=== PATIENT | female | born 1950 | race Caucasian/White ===

== ENCOUNTER 2020-11-27 07:02 | Outpatient (CLI) | payer MEDICARE, OTHER, SELFPAY ==
[2020-11-27 07:34] LABS: Basophils Absolute Auto 0.06 K/mm3 (0.00-0.10); Basophils Percent Auto 0.8 % (0.0-1.0); Eosinophils Absolute Auto 0.32 K/mm3 (0.02-0.50); Eosinophils Percent Auto 4.5 % (1.0-6.0); Hematocrit 42.9 % (35.0-42.0); Hemoglobin 14.4 g/dL (11.7-13.8); Immature Granulocyte Absolute 0.08 K/mm3 (0.00-0.00); Immature Granulocyte Percent A 1.1 % (0.0-0.0); Lymphocytes Absolute Auto 1.84 K/mm3 (1.10-4.50); Lymphocytes Percent Auto 25.9 % (18.0-42.0); Mean Corpuscular HGB Conc 33.6 g/dL (32.0-36.0); Mean Corpuscular Hemoglobin 31.3 pg (27.0-31.0); Mean Corpuscular Volume 93.3 fL (78.0-102.0); Mean Platelet Volume 10.4 fl (9.2-11.8); Neutrophils Absolute Auto 4.3 K/mm3 (1.7-7.2); Neutrophils Percent Auto 60.7 % (50.0-70.0); Platelet Count Result 185 K/mm3 (150-420); Red Cell Distribution Width 13.2 % (11.6-14.4); White Blood Count 7.1 K/mm3 (4.8-10.8)
[2020-11-27 07:35] LABS: Add Urine Microscopic? YES; Appearance Urine Clear (Clear); Bilirubin Urine Negative (Negative); Blood Urine Negative (Negative); Color Urine Light Yellow (Yellow); Glucose Urine UA Negative (Negative); Ketones Urine Negative (Negative); Leukocyte Esterase Ur 1+ (Negative); Nitrate Urine Negative (Negative); Protein Urine Negative (Negative); Urobilinogen Urine 0.2 mg/dL (0.2-1.0)
[2020-11-27 07:42] LABS: Bacteria Urine Trace /hpf; RBC Urine None seen /hpf (0-2); Squamous Epithelial Cell Urine Few /hpf (Few)
[2020-11-27 08:11] LABS: Creatinine Urine 66.11 mg/dL (40-278); MALB Creatinine Ratio 19.6 mg/g (0-30); Microalbumin Urine Random < 13.0 mg/L
[2020-11-27 08:25] LABS: Alanine Aminotransferase 27 U/L (14-59); Albumin Level 4.7 g/dL (3.4-5.0); Alkaline Phosphatase 101 U/L (46-116); Anion Gap 10 mmol/L (8-16); Aspartate Amino Transferase 16 U/L (15-37); Bilirubin,Total 0.9 mg/dL (0.00-1.00); Blood Urea Nitrogen 39 mg/dL (7-18); Calcium 9.7 mg/dL (8.5-10.1); Carbon Dioxide 28 mmol/L (21-32); Chloride 105 mmol/L (98-108); Cholesterol 241 mg/dL (0-200); Creatine Kinase 59 U/L (26-192); Estimated Glomerular Filt Rate 51; Glucose 109 mg/dL (70-99); HDL Direct 42 mg/dL (40-60); LDL Cholesterol Calculated 156 mg/dL (<130); Osmolality Calculated 306 mOsm/kg (285-295); Potassium 4.6 mmol/L (3.5-5.1); Sodium 143 mmol/L (136-145); Total Protein 7.6 g/dL (6.4-8.2); Triglycerides 213 mg/dL (0-150); Uric Acid 4.3 mg/dL (2.6-6.0)
== END 2020-11-27 07:03 | disposition home or self-care (01) ==
LOC: CHSLAB 07:11
PROVIDERS: PCP Family Medicine; Visit Provider Family Medicine
DX: E78.2 Mixed hyperlipidemia (principal); I10 Essential (primary) hypertension; E11.9 Type 2 diabetes mellitus without complications
CPT/HCPCS: 36415; 80053; 80061; 81001; 82043; 82550; 84550; 85025

== ENCOUNTER 2021-02-17 09:46 | Outpatient (CLI) | payer MEDICARE, OTHER, SELFPAY ==
--- NOTE | ~2021-02-17 | XR_ITS ---
EXAMINATION: XR abdomen obstructive series DATE: 02/17/2021 10:17 INDICATION: Abdominal distention TECHNIQUE: Upright and supine views of the abdomen were obtained. COMPARISON: None. FINDINGS: There is no free intraperitoneal gas or evidence of bowel obstruction. Surgical clips in th e right upper quadrant are likely from prior cholecystectomy. There are a few nonspecific air-fluid l evels. Mild osteoarthritis is noted in the hips. Gas and stool are seen in the colon. IMPRESSION: 1. Nonspecific bowel gas pattern. Reviewed, dictated and finalized at location A.
[2021-02-17 10:06] LABS: Add Urine Microscopic? YES; Appearance Urine Clear (Clear); Basophils Absolute Auto 0.05 K/mm3 (0.00-0.10); Basophils Percent Auto 0.7 % (0.0-1.0); Bilirubin Urine 1+ (Negative); Blood Urine Negative (Negative); Color Urine Yellow (Yellow); Eosinophils Absolute Auto 0.18 K/mm3 (0.02-0.50); Eosinophils Percent Auto 2.3 % (1.0-6.0); Glucose Urine UA Negative (Negative); Hematocrit 40.3 % (35.0-42.0); Hemoglobin 12.9 g/dL (11.7-13.8); Immature Granulocyte Absolute 0.08 K/mm3 (0.00-0.00); Ketones Urine Trace (Negative); Leukocyte Esterase Ur Negative LEU/UL (Negative); Lymphocytes Absolute Auto 1.35 K/mm3 (1.10-4.50); Lymphocytes Percent Auto 17.6 % (18.0-42.0); Mean Corpuscular Hemoglobin 29.7 pg (27.0-31.0); Mean Corpuscular Volume 92.6 fL (78.0-102.0); Mean Platelet Volume 9.4 fl (9.2-11.8); Monocytes Absolute Auto 0.44 K/mm3 (0.10-0.90); Monocytes Percent Auto 5.7 % (2.0-11.0); Neutrophils Absolute Auto 5.6 K/mm3 (1.7-7.2); Neutrophils Percent Auto 72.7 % (50.0-70.0); Nitrate Urine Negative (Negative); Platelet Count Result 294 K/mm3 (150-420); Protein Urine Trace (Negative); Red Blood Count 4.35 M/mm3 (4.20-5.40); Red Cell Distribution Width 13.1 % (11.6-14.4); Urobilinogen Urine 0.2 mg/dL (0.2-1.0); White Blood Count 7.7 K/mm3 (4.8-10.8)
[2021-02-17 10:12] LABS: Bacteria Urine Trace /hpf; RBC Urine None seen /hpf (0-2); Squamous Epithelial Cell Urine Few /hpf (Few); WBC Urine None seen /hpf (0-3)
[2021-02-17 10:13] LABS: Mucus Urine Few /lpf
[2021-02-17 11:35] LABS: Alanine Aminotransferase 29 U/L (14-59); Albumin Level 3.6 g/dL (3.4-5.0); Alkaline Phosphatase 131 U/L (46-116); Amylase 40 U/L (25-115); Anion Gap 12 mmol/L (8-16); Aspartate Amino Transferase 25 U/L (15-37); Bilirubin,Total 0.5 mg/dL (0.00-1.00); Blood Urea Nitrogen 15 mg/dL (7-18); Calcium 9.4 mg/dL (8.5-10.1); Carbon Dioxide 29 mmol/L (21-32); Chloride 102 mmol/L (98-108); Estimated Glomerular Filt Rate 53; Free T4 Free Thyroxine 1.02 ng/dL (0.76-1.46); Glucose 101 mg/dL (70-99); Lipase 189 U/L (73-393); Osmolality Calculated 296 mOsm/kg (285-295); Potassium 5.1 mmol/L (3.5-5.1); Sodium 143 mmol/L (136-145); Total Protein 6.8 g/dL (6.4-8.2)
== END 2021-02-17 09:47 | disposition home or self-care (01) ==
LOC: CHSLAB 09:50
PROVIDERS: PCP Family Medicine; Visit Provider Family Medicine
DX: R10.84 Generalized abdominal pain (principal); R94.6 Abnormal results of thyroid function studies; I10 Essential (primary) hypertension; R14.0 Abdominal distension (gaseous)
CPT/HCPCS: 36415; 74019; 80053; 81001; 82150; 83690; 84439; 84443; 85025

== ENCOUNTER 2021-03-23 16:44 | Outpatient (CLI) | payer MEDICARE, OTHER, SELFPAY ==
--- NOTE | ~2021-03-23 | CT_ITS ---
EXAMINATION: CT abdomen pelvis w con DATE: 03/23/2021 17:51 INDICATION: Abdominal pain. Bloating. TECHNIQUE: Computed tomography (CT) of the abdomen and pelvis was performed with 100 mL Omnipaque 350 intravenous contrast. Automated exposure control and iterative reconstruction technique were employe d. The dose-length product was 1285.54 mGy-cm. COMPARISON: CT abdomen and pelvis 09/24/2006 FINDINGS: The visualized portions of the lung bases demonstrate mild atelectasis. No pleural effusion . The heart size is normal. There are coronary artery calcifications. No pericardial effusion. The li meredith and spleen are normal. There are changes of cholecystectomy. The pancreas and adrenal glands are normal. There is moderate atrophy of right kidney. There are cysts in the kidneys measuring up to 3.5 cm on the right. There is cortical thinning of left kidney. There is a 2.4 cm fibroid in the uterus. There are no dilated loops of bowel. The appendix is not visualized. There is a small sliding hiatal hernia. There are no pathologically enlarged lymph nodes. There is a large volume of ascites. There is nodular peritoneal thickening in the pelvis. There is severe lumbar spondylosis. IMPRESSION: 1. Large volume of ascites. 2. Nodular peritoneal thickening in the pelvis suspicious for carcinomatosis. Reviewed, dictated and finalized at location A. EN MACHINE OPERATOR
[2021-03-23 17:12] LABS: Estimated Glomerular Filt Rate 46
== END 2021-03-23 16:45 | disposition home or self-care (01) ==
LOC: CHSIMG 16:48
PROVIDERS: PCP Family Medicine; Visit Provider Family Medicine
DX: R10.9 Unspecified abdominal pain (principal); R14.0 Abdominal distension (gaseous)
CPT/HCPCS: 74177; Q9967

== ENCOUNTER 2021-03-24 09:46 | Outpatient (CLI) | payer MEDICARE, SELFPAY ==
--- NOTE | ~2021-03-24 | US_ITS ---
EXAMINATION: US pelvic complete w TV DATE: 03/24/2021 10:52 INDICATION: Ascites Comparison:CT dated 03/23/2021 TECHNIQUE: Multiple transabdominal and endovaginal sonographic images of the pelvis performed. FINDINGS: The uterus measures 8.2 x 1.9 x 3.6 cm. The endometrial complex measures 3.5 mm. Endometriu m is heterogeneous with trace fluid. In the right adnexa there is a solid vascular mass measuring 2.9 cm. This may be ovarian. Cannot excl ude adenocarcinoma. There is free fluid in the pelvis. There are no abnormal masses seen on either side. IMPRESSION: 1. Solid 2.9 cm vascular right adnexal mass. Consider ovarian adenocarcinoma. 2: Ascites. Reviewed, dictated and finalized at location B. ET UPHOLSTERER
--- NOTE | ~2021-03-24 | XR_ITS ---
EXAMINATION: XR chest 2V EXAM DATE: 03/24/2021 10:55 INDICATION: Ascites, hypertension, distended abdomen. History breast cancer. TECHNIQUE: Frontal and lateral projections of the chest obtained and reviewed. No recent prior studi es for comparison. FINDINGS: Scattered regions of bibasilar airspace disease, appearance most consistent with subsegment al atelectasis. Infection less likely. There is no pneumothorax suspected. There are no pleural effus ions. Cardiomediastinal silhouette is normal. Moderate-sized lower thoracic bridging endplate osteoph ytes, diffuse idiopathic skeletal hyperostosis. Mild thoracic scoliosis. There are cholecystectomy cl ips. IMPRESSION: Scattered basilar linear opacities most consistent with multifocal atelectasis but please clinically correlate. Reviewed, dictated and finalized at location A. SET UP OPERATOR
[2021-03-24 10:57] LABS: Basophils Absolute Auto 0.06 K/mm3 (0.00-0.10); Basophils Percent Auto 0.6 % (0.0-1.0); Eosinophils Absolute Auto 0.14 K/mm3 (0.02-0.50); Eosinophils Percent Auto 1.5 % (1.0-6.0); Hematocrit 37.2 % (35.0-42.0); Immature Granulocyte Absolute 0.06 K/mm3 (0.00-0.00); Immature Granulocyte Percent A 0.6 % (0.0-0.0); Lymphocytes Absolute Auto 1.43 K/mm3 (1.10-4.50); Lymphocytes Percent Auto 15.2 % (18.0-42.0); Mean Corpuscular HGB Conc 32.3 g/dL (32.0-36.0); Mean Platelet Volume 9.5 fl (9.2-11.8); Monocytes Absolute Auto 0.61 K/mm3 (0.10-0.90); Monocytes Percent Auto 6.5 % (2.0-11.0); Neutrophils Absolute Auto 7.1 K/mm3 (1.7-7.2); Neutrophils Percent Auto 75.6 % (50.0-70.0); Platelet Count Result 308 K/mm3 (150-420); Red Cell Distribution Width 14.4 % (11.6-14.4); White Blood Count 9.4 K/mm3 (4.8-10.8)
[2021-03-24 11:02] LABS: Appearance Urine Clear (Clear); Bilirubin Urine Negative (Negative); Blood Urine 2+ (Negative); Glucose Urine UA Negative (Negative); Ketones Urine Trace (Negative); Leukocyte Esterase Ur Negative (Negative); Nitrate Urine Negative (Negative); Protein Urine Negative (Negative); Urobilinogen Urine 0.2 mg/dL (0.2-1.0)
[2021-03-24 11:09] LABS: Add Urine Microscopic? YES; Bacteria Urine 1+ /hpf; Color Urine Dark Orange (Yellow); Squamous Epithelial Cell Urine Rare /hpf (Few); WBC Urine 0-3 /hpf (0-3)
[2021-03-24 11:50] LABS: Alanine Aminotransferase 20 U/L (14-59); Albumin Level 3.6 g/dL (3.4-5.0); Alkaline Phosphatase 121 U/L (46-116); Amylase 55 U/L (25-115); Anion Gap 12 mmol/L (8-16); Aspartate Amino Transferase 31 U/L (15-37); Bilirubin,Total 0.7 mg/dL (0.00-1.00); Blood Urea Nitrogen 23 mg/dL (7-18); Calcium 9.6 mg/dL (8.5-10.1); Carbon Dioxide 27 mmol/L (21-32); Chloride 101 mmol/L (98-108); Estimated Glomerular Filt Rate 48; Glucose 107 mg/dL (70-99); Lipase 255 U/L (73-393); Osmolality Calculated 293 mOsm/kg (285-295); Potassium 4.2 mmol/L (3.5-5.1); Sodium 140 mmol/L (136-145); Total Protein 6.9 g/dL (6.4-8.2)
== END 2021-03-24 09:47 | disposition home or self-care (01) ==
LOC: CHSLAB 09:56
PROVIDERS: PCP Family Medicine; Visit Provider Family Medicine
DX: R18.8 Other ascites (principal); R31.9 Hematuria, unspecified
CPT/HCPCS: 36415; 71046; 76830; 76856; 80053; 81001; 82150; 83690; 85025; 88112; 88175; G0145

== ENCOUNTER 2021-04-23 07:06 | Outpatient (CLI) | payer MEDICARE, SELFPAY ==
[2021-04-23 07:39] LABS: Partial Thromboplastin Time 30.2 SEC (23.90-30.70); Prothrombin Time 10.7 Seconds (9.50-12.10)
== END 2021-04-23 07:07 | disposition home or self-care (01) ==
LOC: CHSLAB 07:11
PROVIDERS: PCP Family Medicine
DX: N94.89 Other specified conditions associated with female genital organs and menstrual cycle (principal); R18.8 Other ascites
CPT/HCPCS: 36415; 85610; 85730

== ENCOUNTER 2021-05-05 07:12 | Outpatient (CLI) | payer MEDICARE, SELFPAY ==
[2021-05-05 07:46] LABS: Basophils Absolute Auto 0.05 K/mm3 (0.00-0.10); Basophils Percent Auto 0.7 % (0.0-1.0); Eosinophils Absolute Auto 0.27 K/mm3 (0.02-0.50); Eosinophils Percent Auto 3.9 % (1.0-6.0); Hematocrit 36.3 % (35.0-42.0); Immature Granulocyte Absolute 0.07 K/mm3 (0.00-0.00); Lymphocytes Absolute Auto 1.07 K/mm3 (1.10-4.50); Lymphocytes Percent Auto 15.6 % (18.0-42.0); Mean Corpuscular HGB Conc 30.3 g/dL (32.0-36.0); Mean Corpuscular Hemoglobin 28.1 pg (27.0-31.0); Mean Corpuscular Volume 92.6 fL (78.0-102.0); Mean Platelet Volume 9.5 fl (9.2-11.8); Monocytes Absolute Auto 0.49 K/mm3 (0.10-0.90); Monocytes Percent Auto 7.2 % (2.0-11.0); Neutrophils Absolute Auto 4.9 K/mm3 (1.7-7.2); Neutrophils Percent Auto 71.6 % (50.0-70.0); Platelet Count Result 391 K/mm3 (150-420); Red Blood Count 3.92 M/mm3 (4.20-5.40); Red Cell Distribution Width 14.1 % (11.6-14.4); White Blood Count 6.8 K/mm3 (4.8-10.8)
[2021-05-05 09:02] LABS: Alanine Aminotransferase 21 U/L (14-59); Albumin Level 3.1 g/dL (3.4-5.0); Alkaline Phosphatase 181 U/L (46-116); Anion Gap 11 mmol/L (8-16); Aspartate Amino Transferase 14 U/L (15-37); Bilirubin,Total 0.2 mg/dL (0.00-1.00); Blood Urea Nitrogen 23 mg/dL (7-18); Calcium 9.2 mg/dL (8.5-10.1); Carbon Dioxide 28 mmol/L (21-32); Chloride 104 mmol/L (98-108); Estimated Glomerular Filt Rate 59; Glucose 112 mg/dL (70-99); Magnesium 2.3 mg/dL (1.8-2.4); Osmolality Calculated 300 mOsm/kg (285-295); Potassium 4.5 mmol/L (3.5-5.1); Sodium 143 mmol/L (136-145); Total Protein 6.6 g/dL (6.4-8.2)
[2021-05-08 01:42] LABS: CA-125 1023 U/mL (<35)
== END 2021-05-05 07:13 | disposition home or self-care (01) ==
LOC: CHSLAB 07:17
PROVIDERS: PCP Family Medicine
DX: C57.01 Malignant neoplasm of right fallopian tube (principal)
CPT/HCPCS: 36415; 80053; 83735; 85025; 85610; 85730; 86304

== ENCOUNTER 2021-05-06 06:54 | Outpatient (CLI) | payer MEDICARE, SELFPAY ==
[2021-05-06 07:23] LABS: Prothrombin Time 10.8 Seconds (9.50-12.10)
[2021-05-06 07:38] LABS: Partial Thromboplastin Time 29.7 SEC (23.90-30.70)
== END 2021-05-06 06:55 | disposition home or self-care (01) ==
LOC: CHSLAB 06:57
PROVIDERS: PCP Family Medicine
DX: C57.01 Malignant neoplasm of right fallopian tube (principal); N94.89 Other specified conditions associated with female genital organs and menstrual cycle; R18.8 Other ascites
CPT/HCPCS: 36415; 85610; 85730

== ENCOUNTER 2021-06-03 07:00 | Outpatient (CLI) | payer MEDICARE, SELFPAY ==
[2021-06-03 07:21] LABS: Basophils Absolute Auto 0.06 K/mm3 (0.00-0.10); Basophils Percent Auto 0.8 % (0.0-1.0); Eosinophils Absolute Auto 0.46 K/mm3 (0.02-0.50); Eosinophils Percent Auto 6.4 % (1.0-6.0); Hematocrit 40.2 % (35.0-42.0); Hemoglobin 12.6 g/dL (11.7-13.8); Immature Granulocyte Absolute 0.08 K/mm3 (0.00-0.00); Immature Granulocyte Percent A 1.1 % (0.0-0.0); Lymphocytes Absolute Auto 1.72 K/mm3 (1.10-4.50); Lymphocytes Percent Auto 23.8 % (18.0-42.0); Mean Corpuscular HGB Conc 31.3 g/dL (32.0-36.0); Mean Corpuscular Hemoglobin 28.2 pg (27.0-31.0); Mean Corpuscular Volume 89.9 fL (78.0-102.0); Mean Platelet Volume 9.3 fl (9.2-11.8); Monocytes Absolute Auto 0.53 K/mm3 (0.10-0.90); Monocytes Percent Auto 7.3 % (2.0-11.0); Neutrophils Absolute Auto 4.4 K/mm3 (1.7-7.2); Neutrophils Percent Auto 60.6 % (50.0-70.0); Platelet Count Result 302 K/mm3 (150-420); Red Blood Count 4.47 M/mm3 (4.20-5.40); Red Cell Distribution Width 14.8 % (11.6-14.4); White Blood Count 7.2 K/mm3 (4.8-10.8)
[2021-06-03 07:29] LABS: Creatinine Urine 85.35 mg/dL (40-278); Total Protein Urine Random 23.3 mg/dL (0.0-11.9); Ur Ttl Prot Creatinine Ratio 0.27 mg/mg (0-0.20)
[2021-06-03 07:37] LABS: INR 1.1; Partial Thromboplastin Time 30.8 SEC (23.90-30.70); Prothrombin Time 11.4 Seconds (9.50-12.10)
[2021-06-03 08:40] LABS: Alanine Aminotransferase 23 U/L (14-59); Albumin Level 3.5 g/dL (3.4-5.0); Alkaline Phosphatase 165 U/L (46-116); Anion Gap 12 mmol/L (8-16); Aspartate Amino Transferase 15 U/L (15-37); Bilirubin,Total 0.4 mg/dL (0.00-1.00); Blood Urea Nitrogen 24 mg/dL (7-18); Calcium 9.4 mg/dL (8.5-10.1); Carbon Dioxide 28 mmol/L (21-32); Chloride 102 mmol/L (98-108); Estimated Glomerular Filt Rate 53; Glucose 115 mg/dL (70-99); Magnesium 2.1 mg/dL (1.8-2.4); Osmolality Calculated 299 mOsm/kg (285-295); Potassium 4.1 mmol/L (3.5-5.1); Sodium 142 mmol/L (136-145); Total Protein 6.8 g/dL (6.4-8.2)
[2021-06-06 02:04] LABS: CA-125 1605 U/mL (<35)
== END 2021-06-03 07:01 | disposition home or self-care (01) ==
LOC: CHSLAB 07:05
PROVIDERS: PCP Family Medicine
DX: C57.01 Malignant neoplasm of right fallopian tube (principal); Z51.11 Encounter for antineoplastic chemotherapy; R18.8 Other ascites; N94.89 Other specified conditions associated with female genital organs and menstrual cycle
CPT/HCPCS: 36415; 80053; 82570; 83735; 84156; 85025; 85610; 85730; 86304

== ENCOUNTER 2021-06-24 06:58 | Outpatient (CLI) | payer MEDICARE, SELFPAY ==
[2021-06-24 07:15] LABS: Basophils Absolute Auto 0.04 K/mm3 (0.00-0.10); Basophils Percent Auto 0.6 % (0.0-1.0); Eosinophils Absolute Auto 0.04 K/mm3 (0.02-0.50); Eosinophils Percent Auto 0.6 % (1.0-6.0); Hematocrit 40.7 % (35.0-42.0); Hemoglobin 12.8 g/dL (11.7-13.8); Immature Granulocyte Absolute 0.08 K/mm3 (0.00-0.00); Immature Granulocyte Percent A 1.1 % (0.0-0.0); Lymphocytes Absolute Auto 1.38 K/mm3 (1.10-4.50); Lymphocytes Percent Auto 19.5 % (18.0-42.0); Mean Corpuscular HGB Conc 31.4 g/dL (32.0-36.0); Mean Corpuscular Hemoglobin 28.6 pg (27.0-31.0); Mean Corpuscular Volume 91.1 fL (78.0-102.0); Monocytes Absolute Auto 0.48 K/mm3 (0.10-0.90); Monocytes Percent Auto 6.8 % (2.0-11.0); Neutrophils Absolute Auto 5.1 K/mm3 (1.7-7.2); Neutrophils Percent Auto 71.4 % (50.0-70.0); Platelet Count Result 177 K/mm3 (150-420); Red Blood Count 4.47 M/mm3 (4.20-5.40); Red Cell Distribution Width 15.5 % (11.6-14.4); White Blood Count 7.1 K/mm3 (4.8-10.8)
[2021-06-24 07:21] LABS: Creatinine Urine 82.75 mg/dL (40-278); Total Protein Urine Random 18.6 mg/dL (0.0-11.9); Ur Ttl Prot Creatinine Ratio 0.22 mg/mg (0-0.20)
[2021-06-24 07:54] LABS: Alanine Aminotransferase 26 U/L (14-59); Albumin Level 3.4 g/dL (3.4-5.0); Alkaline Phosphatase 126 U/L (46-116); Anion Gap 6 mmol/L (8-16); Aspartate Amino Transferase 19 U/L (15-37); Bilirubin,Total 0.2 mg/dL (0.00-1.00); Blood Urea Nitrogen 15 mg/dL (7-18); Calcium 9.1 mg/dL (8.5-10.1); Carbon Dioxide 30 mmol/L (21-32); Chloride 107 mmol/L (98-108); Estimated Glomerular Filt Rate > 60; Glucose 104 mg/dL (70-99); Magnesium 2.5 mg/dL (1.8-2.4); Osmolality Calculated 296 mOsm/kg (285-295); Potassium 4.6 mmol/L (3.5-5.1); Sodium 143 mmol/L (136-145); Total Protein 6.5 g/dL (6.4-8.2)
[2021-06-27 02:27] LABS: CA-125 919 U/mL (<35)
== END 2021-06-24 06:59 | disposition home or self-care (01) ==
LOC: CHSLAB 07:01
PROVIDERS: PCP Family Medicine
DX: C57.01 Malignant neoplasm of right fallopian tube (principal); Z51.11 Encounter for antineoplastic chemotherapy
CPT/HCPCS: 36415; 80053; 82570; 83735; 84156; 85025; 86304

== ENCOUNTER 2021-07-15 06:58 | Outpatient (CLI) | payer MEDICARE, SELFPAY ==
[2021-07-15 07:14] LABS: Basophils Absolute Auto 0.06 K/mm3 (0.00-0.10); Basophils Percent Auto 0.8 % (0.0-1.0); Hematocrit 39.2 % (35.0-42.0); Hemoglobin 12.5 g/dL (11.7-13.8); Immature Granulocyte Absolute 0.06 K/mm3 (0.00-0.00); Immature Granulocyte Percent A 0.8 % (0.0-0.0); Lymphocytes Absolute Auto 1.39 K/mm3 (1.10-4.50); Lymphocytes Percent Auto 18.7 % (18.0-42.0); Mean Corpuscular HGB Conc 31.9 g/dL (32.0-36.0); Mean Corpuscular Hemoglobin 29.2 pg (27.0-31.0); Mean Corpuscular Volume 91.6 fL (78.0-102.0); Mean Platelet Volume 9.1 fl (9.2-11.8); Monocytes Absolute Auto 0.44 K/mm3 (0.10-0.90); Monocytes Percent Auto 5.9 % (2.0-11.0); Neutrophils Absolute Auto 5.5 K/mm3 (1.7-7.2); Neutrophils Percent Auto 73.8 % (50.0-70.0); Platelet Count Result 147 K/mm3 (150-420); Red Blood Count 4.28 M/mm3 (4.20-5.40); White Blood Count 7.4 K/mm3 (4.8-10.8)
[2021-07-15 07:26] LABS: Creatinine Urine 100.92 mg/dL (40-278); Total Protein Urine Random 21.9 mg/dL (0.0-11.9); Ur Ttl Prot Creatinine Ratio 0.22 mg/mg (0-0.20)
[2021-07-15 07:56] LABS: Alanine Aminotransferase 23 U/L (14-59); Albumin Level 3.7 g/dL (3.4-5.0); Alkaline Phosphatase 111 U/L (46-116); Anion Gap 10 mmol/L (8-16); Aspartate Amino Transferase 20 U/L (15-37); Bilirubin,Total 0.4 mg/dL (0.00-1.00); Blood Urea Nitrogen 19 mg/dL (7-18); Calcium 9.4 mg/dL (8.5-10.1); Carbon Dioxide 26 mmol/L (21-32); Chloride 104 mmol/L (98-108); Estimated Glomerular Filt Rate > 60; Glucose 105 mg/dL (70-99); Magnesium 1.4 mg/dL (1.8-2.4); Osmolality Calculated 292 mOsm/kg (285-295); Sodium 140 mmol/L (136-145); Total Protein 6.7 g/dL (6.4-8.2)
[2021-07-18 03:16] LABS: CA-125 439 U/mL (<35)
== END 2021-07-15 06:59 | disposition home or self-care (01) ==
LOC: CHSLAB 07:01
PROVIDERS: PCP Family Medicine
DX: C57.01 Malignant neoplasm of right fallopian tube (principal); Z51.11 Encounter for antineoplastic chemotherapy
CPT/HCPCS: 36415; 80053; 82570; 83735; 84156; 85025; 86304

== ENCOUNTER 2021-08-05 07:08 | Outpatient (CLI) | payer MEDICARE, SELFPAY ==
[2021-08-05 07:27] LABS: Basophils Absolute Auto 0.03 K/mm3 (0.00-0.10); Basophils Percent Auto 0.5 % (0.0-1.0); Hematocrit 36.8 % (35.0-42.0); Hemoglobin 12.1 g/dL (11.7-13.8); Immature Granulocyte Absolute 0.04 K/mm3 (0.00-0.00); Immature Granulocyte Percent A 0.6 % (0.0-0.0); Immature Platelet Fraction Pct 1.6 % (1.0-7.0); Lymphocytes Absolute Auto 1.58 K/mm3 (1.10-4.50); Lymphocytes Percent Auto 25.6 % (18.0-42.0); Mean Corpuscular HGB Conc 32.9 g/dL (32.0-36.0); Mean Corpuscular Hemoglobin 30.8 pg (27.0-31.0); Mean Corpuscular Volume 93.6 fL (78.0-102.0); Mean Platelet Volume 9.5 fl (9.2-11.8); Monocytes Absolute Auto 0.36 K/mm3 (0.10-0.90); Monocytes Percent Auto 5.8 % (2.0-11.0); Neutrophils Absolute Auto 4.2 K/mm3 (1.7-7.2); Neutrophils Percent Auto 67.5 % (50.0-70.0); Platelet Count Result 141 K/mm3 (150-420); Red Blood Count 3.93 M/mm3 (4.20-5.40); Red Cell Distribution Width 21.2 % (11.6-14.4); White Blood Count 6.2 K/mm3 (4.8-10.8)
[2021-08-05 07:41] LABS: Creatinine Urine 92.75 mg/dL (40-278); Total Protein Urine Random 13.8 mg/dL (0.0-11.9); Ur Ttl Prot Creatinine Ratio 0.15 mg/mg (0-0.20)
[2021-08-05 08:42] LABS: Alanine Aminotransferase 22 U/L (14-59); Albumin Level 3.7 g/dL (3.4-5.0); Alkaline Phosphatase 96 U/L (46-116); Anion Gap 10 mmol/L (8-16); Aspartate Amino Transferase 19 U/L (15-37); Bilirubin,Total 0.3 mg/dL (0.00-1.00); Blood Urea Nitrogen 16 mg/dL (7-18); Calcium 9.1 mg/dL (8.5-10.1); Carbon Dioxide 26 mmol/L (21-32); Chloride 106 mmol/L (98-108); Estimated Glomerular Filt Rate > 60; Glucose 99 mg/dL (70-99); Magnesium 1.6 mg/dL (1.8-2.4); Osmolality Calculated 295 mOsm/kg (285-295); Potassium 3.9 mmol/L (3.5-5.1); Sodium 142 mmol/L (136-145); Total Protein 6.5 g/dL (6.4-8.2)
[2021-08-08 02:40] LABS: CA-125 322 U/mL (<35)
== END 2021-08-05 07:09 | disposition home or self-care (01) ==
LOC: CHSLAB 07:12
PROVIDERS: PCP Family Medicine
DX: C57.01 Malignant neoplasm of right fallopian tube (principal)
CPT/HCPCS: 36415; 80053; 82570; 83735; 84156; 85025; 85055; 86304

== ENCOUNTER 2021-08-26 07:22 | Outpatient (CLI) | payer MEDICARE, SELFPAY ==
[2021-08-26 07:56] LABS: Basophils Absolute Auto 0.03 K/mm3 (0.00-0.10); Basophils Percent Auto 0.4 % (0.0-1.0); Hematocrit 33.2 % (35.0-42.0); Hemoglobin 10.9 g/dL (11.7-13.8); Immature Granulocyte Absolute 0.04 K/mm3 (0.00-0.00); Immature Granulocyte Percent A 0.5 % (0.0-0.0); Lymphocytes Absolute Auto 1.64 K/mm3 (1.10-4.50); Lymphocytes Percent Auto 22.3 % (18.0-42.0); Mean Corpuscular HGB Conc 32.8 g/dL (32.0-36.0); Mean Corpuscular Hemoglobin 32.5 pg (27.0-31.0); Mean Corpuscular Volume 99.1 fL (78.0-102.0); Mean Platelet Volume 9.6 fl (9.2-11.8); Monocytes Absolute Auto 0.43 K/mm3 (0.10-0.90); Monocytes Percent Auto 5.8 % (2.0-11.0); Neutrophils Absolute Auto 5.2 K/mm3 (1.7-7.2); Platelet Count Result 108 K/mm3 (150-420); Red Blood Count 3.35 M/mm3 (4.20-5.40); Red Cell Distribution Width 23.2 % (11.6-14.4); White Blood Count 7.4 K/mm3 (4.8-10.8)
[2021-08-26 08:02] LABS: Creatinine Urine 83.13 mg/dL (40-278); Total Protein Urine Random 15.1 mg/dL (0.0-11.9); Ur Ttl Prot Creatinine Ratio 0.18 mg/mg (0-0.20)
[2021-08-26 08:06] LABS: Alanine Aminotransferase 23 U/L (14-59); Albumin Level 3.4 g/dL (3.4-5.0); Alkaline Phosphatase 90 U/L (46-116); Anion Gap 7 mmol/L (8-16); Aspartate Amino Transferase 21 U/L (15-37); Bilirubin,Total 0.3 mg/dL (0.00-1.00); Blood Urea Nitrogen 22 mg/dL (7-18); Calcium 9.4 mg/dL (8.5-10.1); Carbon Dioxide 27 mmol/L (21-32); Chloride 107 mmol/L (98-108); Estimated Glomerular Filt Rate > 60; Glucose 100 mg/dL (70-99); Magnesium 1.6 mg/dL (1.8-2.4); Osmolality Calculated 295 mOsm/kg (285-295); Potassium 4.1 mmol/L (3.5-5.1); Sodium 141 mmol/L (136-145); Total Protein 6.8 g/dL (6.4-8.2)
[2021-08-29 00:38] LABS: CA-125 172 U/mL (<35)
== END 2021-08-26 07:23 | disposition home or self-care (01) ==
LOC: CHSLAB 07:25
PROVIDERS: PCP Family Medicine
DX: C57.01 Malignant neoplasm of right fallopian tube (principal)
CPT/HCPCS: 36415; 80053; 82570; 83735; 84156; 85025; 86304

== ENCOUNTER 2021-09-16 07:01 | Outpatient (CLI) | payer MEDICARE, SELFPAY ==
[2021-09-16 07:22] LABS: Basophils Absolute Auto 0.03 K/mm3 (0.00-0.10); Basophils Percent Auto 0.4 % (0.0-1.0); Hemoglobin 10.4 g/dL (11.7-13.8); Immature Granulocyte Absolute 0.04 K/mm3 (0.00-0.00); Immature Granulocyte Percent A 0.6 % (0.0-0.0); Lymphocytes Absolute Auto 1.57 K/mm3 (1.10-4.50); Lymphocytes Percent Auto 23.3 % (18.0-42.0); Mean Corpuscular HGB Conc 33.5 g/dL (32.0-36.0); Mean Corpuscular Hemoglobin 34.4 pg (27.0-31.0); Mean Corpuscular Volume 102.6 fL (78.0-102.0); Mean Platelet Volume 9.9 fl (9.2-11.8); Monocytes Absolute Auto 0.45 K/mm3 (0.10-0.90); Monocytes Percent Auto 6.7 % (2.0-11.0); Neutrophils Absolute Auto 4.7 K/mm3 (1.7-7.2); Platelet Count Result 94 K/mm3 (150-420); Red Blood Count 3.02 M/mm3 (4.20-5.40); Red Cell Distribution Width 20.6 % (11.6-14.4); White Blood Count 6.8 K/mm3 (4.8-10.8)
[2021-09-16 07:31] LABS: Creatinine Urine 113.77 mg/dL (40-278); Total Protein Urine Random 27.6 mg/dL (0.0-11.9); Ur Ttl Prot Creatinine Ratio 0.24 mg/mg (0-0.20)
[2021-09-16 08:11] LABS: Alanine Aminotransferase 10 U/L (14-59); Albumin Level 3.5 g/dL (3.4-5.0); Alkaline Phosphatase 94 U/L (46-116); Anion Gap 11 mmol/L (8-16); Aspartate Amino Transferase 31 U/L (15-37); Bilirubin,Total 0.5 mg/dL (0.00-1.00); Blood Urea Nitrogen 15 mg/dL (7-18); Calcium 8.7 mg/dL (8.5-10.1); Carbon Dioxide 24 mmol/L (21-32); Chloride 108 mmol/L (98-108); Estimated Glomerular Filt Rate > 60; Glucose 98 mg/dL (70-99); Magnesium 1.5 mg/dL (1.8-2.4); Osmolality Calculated 296 mOsm/kg (285-295); Potassium 3.6 mmol/L (3.5-5.1); Sodium 143 mmol/L (136-145); Total Protein 6.1 g/dL (6.4-8.2)
[2021-09-19 02:28] LABS: CA-125 140 U/mL (<35)
== END 2021-09-16 07:02 | disposition home or self-care (01) ==
LOC: CHSLAB 07:05
PROVIDERS: PCP Family Medicine
DX: C57.01 Malignant neoplasm of right fallopian tube (principal)
CPT/HCPCS: 36415; 80053; 82570; 83735; 84156; 85025; 85055; 86304

== ENCOUNTER 2021-09-22 07:12 | Outpatient (CLI) | payer MEDICARE, OTHER, SELFPAY ==
[2021-09-22 07:26] LABS: Basophils Absolute Auto 0.03 K/mm3 (0.00-0.10); Basophils Percent Auto 0.5 % (0.0-1.0); Eosinophils Absolute Auto 0.07 K/mm3 (0.02-0.50); Eosinophils Percent Auto 1.2 % (1.0-6.0); Hematocrit 32.3 % (35.0-42.0); Hemoglobin 10.7 g/dL (11.7-13.8); Immature Granulocyte Absolute 0.04 K/mm3 (0.00-0.00); Immature Granulocyte Percent A 0.7 % (0.0-0.0); Lymphocytes Absolute Auto 1.65 K/mm3 (1.10-4.50); Lymphocytes Percent Auto 27.8 % (18.0-42.0); Mean Corpuscular HGB Conc 33.1 g/dL (32.0-36.0); Mean Corpuscular Hemoglobin 35.4 pg (27.0-31.0); Mean Platelet Volume 9.8 fl (9.2-11.8); Monocytes Absolute Auto 0.47 K/mm3 (0.10-0.90); Monocytes Percent Auto 7.9 % (2.0-11.0); Neutrophils Absolute Auto 3.7 K/mm3 (1.7-7.2); Neutrophils Percent Auto 61.9 % (50.0-70.0); Platelet Count Result 106 K/mm3 (150-420); Red Blood Count 3.02 M/mm3 (4.20-5.40); Red Cell Distribution Width 20.3 % (11.6-14.4); White Blood Count 5.9 K/mm3 (4.8-10.8)
[2021-09-22 08:48] LABS: Alanine Aminotransferase 20 U/L (14-59); Albumin Level 3.5 g/dL (3.4-5.0); Alkaline Phosphatase 90 U/L (46-116); Anion Gap 6 mmol/L (8-16); Aspartate Amino Transferase 20 U/L (15-37); Bilirubin,Total 0.3 mg/dL (0.00-1.00); Blood Urea Nitrogen 19 mg/dL (7-18); Calcium 8.8 mg/dL (8.5-10.1); Carbon Dioxide 28 mmol/L (21-32); Chloride 107 mmol/L (98-108); Estimated Glomerular Filt Rate > 60; Glucose 102 mg/dL (70-99); Magnesium 1.5 mg/dL (1.8-2.4); Osmolality Calculated 294 mOsm/kg (285-295); Potassium 4.2 mmol/L (3.5-5.1); Sodium 141 mmol/L (136-145); Total Protein 6.2 g/dL (6.4-8.2)
== END 2021-09-22 07:13 | disposition home or self-care (01) ==
LOC: CHSLAB 07:16
PROVIDERS: PCP Family Medicine
DX: C57.01 Malignant neoplasm of right fallopian tube (principal)
CPT/HCPCS: 36415; 80053; 83735; 85025

== ENCOUNTER 2021-11-25 15:49 | Outpatient (CLI) | payer MEDICARE, OTHER, SELFPAY ==
[2021-11-25 16:11] LABS: Add Urine Microscopic? YES; Bilirubin Urine Negative (Negative); Blood Urine 2+ (Negative); Color Urine Yellow (Yellow); Glucose Urine UA Negative (Negative); Ketones Urine Negative (Negative); Leukocyte Esterase Ur 3+ LEU/UL (Negative); Nitrate Urine Positive (Negative); Protein Urine Trace (Negative); Urobilinogen Urine 0.2 mg/dL (0.2-1.0)
[2021-11-25 16:17] LABS: Appearance Urine Cloudy (Clear); Squamous Epithelial Cell Urine Few /hpf (Few); WBC Urine >75 /hpf (0-3)
[2021-11-25 16:18] LABS: Bacteria Urine 1+ /hpf
== END 2021-11-25 15:50 | disposition home or self-care (01) ==
LOC: CHSLAB 15:55
PROVIDERS: PCP Family Medicine
DX: R39.15 Urgency of urination (principal)
CPT/HCPCS: 81001; 87077; 87086; 87088; 87186

== ENCOUNTER 2021-12-30 06:58 | Outpatient (CLI) | payer MEDICARE, SELFPAY ==
[2021-12-30 07:10] LABS: Basophils Absolute Auto 0.02 K/mm3 (0.00-0.10); Basophils Percent Auto 0.3 % (0.0-1.0); Eosinophils Percent Auto 4.8 % (1.0-6.0); Hematocrit 34.6 % (35.0-42.0); Immature Granulocyte Absolute 0.03 K/mm3 (0.00-0.00); Immature Granulocyte Percent A 0.5 % (0.0-0.0); Lymphocytes Absolute Auto 1.08 K/mm3 (1.10-4.50); Lymphocytes Percent Auto 17.4 % (18.0-42.0); Mean Corpuscular HGB Conc 31.8 g/dL (32.0-36.0); Mean Corpuscular Hemoglobin 30.3 pg (27.0-31.0); Mean Corpuscular Volume 95.3 fL (78.0-102.0); Monocytes Absolute Auto 0.45 K/mm3 (0.10-0.90); Monocytes Percent Auto 7.2 % (2.0-11.0); Neutrophils Absolute Auto 4.3 K/mm3 (1.7-7.2); Neutrophils Percent Auto 69.8 % (50.0-70.0); Platelet Count Result 249 K/mm3 (150-420); Red Blood Count 3.63 M/mm3 (4.20-5.40); Red Cell Distribution Width 14.8 % (11.6-14.4); White Blood Count 6.2 K/mm3 (4.8-10.8)
[2021-12-30 08:04] LABS: Alanine Aminotransferase 15 U/L (14-59); Albumin Level 3.2 g/dL (3.4-5.0); Alkaline Phosphatase 117 U/L (46-116); Anion Gap 7 mmol/L (8-16); Aspartate Amino Transferase 17 U/L (15-37); Bilirubin,Total 0.3 mg/dL (0.00-1.00); Blood Urea Nitrogen 25 mg/dL (7-18); Calcium 9.6 mg/dL (8.5-10.1); Carbon Dioxide 28 mmol/L (21-32); Chloride 104 mmol/L (98-108); Estimated Glomerular Filt Rate > 60; Glucose 107 mg/dL (70-99); Magnesium 1.8 mg/dL (1.8-2.4); Osmolality Calculated 292 mOsm/kg (285-295); Potassium 4.1 mmol/L (3.5-5.1); Sodium 139 mmol/L (136-145); Total Protein 7.4 g/dL (6.4-8.2)
[2022-01-02 01:00] LABS: CA-125 1450 U/mL (<35)
== END 2021-12-30 06:59 | disposition home or self-care (01) ==
LOC: CHSLAB 07:00
PROVIDERS: PCP Family Medicine; Visit Provider Obstetrics & Gynecology
DX: C57.01 Malignant neoplasm of right fallopian tube (principal)
CPT/HCPCS: 36415; 80053; 83735; 85025; 86304

== ENCOUNTER 2022-01-20 07:02 | Outpatient (CLI) | payer MEDICARE, SELFPAY ==
[2022-01-20 07:21] LABS: Basophils Absolute Auto 0.02 K/mm3 (0.00-0.10); Basophils Percent Auto 0.3 % (0.0-1.0); Eosinophils Absolute Auto 0.04 K/mm3 (0.02-0.50); Eosinophils Percent Auto 0.5 % (1.0-6.0); Hematocrit 32.8 % (35.0-42.0); Hemoglobin 10.4 g/dL (11.7-13.8); Immature Granulocyte Absolute 0.07 K/mm3 (0.00-0.00); Immature Granulocyte Percent A 0.9 % (0.0-0.0); Lymphocytes Percent Auto 10.8 % (18.0-42.0); Mean Corpuscular HGB Conc 31.7 g/dL (32.0-36.0); Mean Corpuscular Hemoglobin 29.5 pg (27.0-31.0); Mean Corpuscular Volume 93.2 fL (78.0-102.0); Mean Platelet Volume 9.5 fl (9.2-11.8); Monocytes Absolute Auto 0.36 K/mm3 (0.10-0.90); Monocytes Percent Auto 4.9 % (2.0-11.0); Neutrophils Absolute Auto 6.1 K/mm3 (1.7-7.2); Neutrophils Percent Auto 82.6 % (50.0-70.0); Platelet Count Result 177 K/mm3 (150-420); Red Blood Count 3.52 M/mm3 (4.20-5.40); Red Cell Distribution Width 16.2 % (11.6-14.4); White Blood Count 7.4 K/mm3 (4.8-10.8)
[2022-01-20 07:29] LABS: Ur Ttl Prot Creatinine Ratio 0.36 mg/mg (0-0.20)
[2022-01-20 07:37] LABS: Alanine Aminotransferase 15 U/L (14-59); Alkaline Phosphatase 132 U/L (46-116); Anion Gap 7 mmol/L (8-16); Aspartate Amino Transferase 15 U/L (15-37); Bilirubin,Total 0.3 mg/dL (0.00-1.00); Blood Urea Nitrogen 15 mg/dL (7-18); Calcium 9.5 mg/dL (8.5-10.1); Carbon Dioxide 30 mmol/L (21-32); Chloride 107 mmol/L (98-108); Estimated Glomerular Filt Rate > 60; Glucose 105 mg/dL (70-99); Magnesium 1.7 mg/dL (1.8-2.4); Osmolality Calculated 298 mOsm/kg (285-295); Potassium 3.7 mmol/L (3.5-5.1); Sodium 144 mmol/L (136-145); Total Protein 7.1 g/dL (6.4-8.2)
[2022-01-23 02:52] LABS: CA-125 1872 U/mL (<35)
== END 2022-01-20 07:03 | disposition home or self-care (01) ==
LOC: CHSLAB 07:06
PROVIDERS: PCP Family Medicine; Visit Provider Obstetrics & Gynecology
DX: C57.01 Malignant neoplasm of right fallopian tube (principal)
CPT/HCPCS: 36415; 80053; 82570; 83735; 84156; 85025; 86304

== ENCOUNTER 2022-03-03 07:07 | Outpatient (CLI) | payer MEDICARE, SELFPAY ==
[2022-03-03 07:27] LABS: Basophils Absolute Auto 0.04 K/mm3 (0.00-0.10); Basophils Percent Auto 0.6 % (0.0-1.0); Eosinophils Absolute Auto 0.19 K/mm3 (0.02-0.50); Eosinophils Percent Auto 2.9 % (1.0-6.0); Hematocrit 31.6 % (35.0-42.0); Hemoglobin 9.6 g/dL (11.7-13.8); Immature Granulocyte Percent A 1.5 % (0.0-0.0); Lymphocytes Absolute Auto 1.07 K/mm3 (1.10-4.50); Lymphocytes Percent Auto 16.2 % (18.0-42.0); Mean Corpuscular HGB Conc 30.4 g/dL (32.0-36.0); Mean Corpuscular Hemoglobin 28.3 pg (27.0-31.0); Mean Corpuscular Volume 93.2 fL (78.0-102.0); Mean Platelet Volume 9.9 fl (9.2-11.8); Monocytes Absolute Auto 0.37 K/mm3 (0.10-0.90); Monocytes Percent Auto 5.6 % (2.0-11.0); Neutrophils Absolute Auto 4.9 K/mm3 (1.7-7.2); Neutrophils Percent Auto 73.2 % (50.0-70.0); Platelet Count Result 247 K/mm3 (150-420); Red Blood Count 3.39 M/mm3 (4.20-5.40); Red Cell Distribution Width 19.9 % (11.6-14.4); White Blood Count 6.6 K/mm3 (4.8-10.8)
[2022-03-03 07:32] LABS: Creatinine Urine 123.05 mg/dL (40-278); Ur Ttl Prot Creatinine Ratio 0.28 mg/mg (0-0.20)
[2022-03-03 08:03] LABS: Alanine Aminotransferase 22 U/L (14-59); Albumin Level 2.5 g/dL (3.4-5.0); Alkaline Phosphatase 191 U/L (46-116); Anion Gap 12 mmol/L (8-16); Aspartate Amino Transferase 19 U/L (15-37); Bilirubin,Total 0.5 mg/dL (0.00-1.00); Blood Urea Nitrogen 26 mg/dL (7-18); Calcium 9.4 mg/dL (8.5-10.1); Carbon Dioxide 25 mmol/L (21-32); Chloride 103 mmol/L (98-108); Estimated Glomerular Filt Rate 41; Glucose 115 mg/dL (70-99); Magnesium 1.2 mg/dL (1.8-2.4); Osmolality Calculated 295 mOsm/kg (285-295); Potassium 3.9 mmol/L (3.5-5.1); Sodium 140 mmol/L (136-145); Total Protein 6.8 g/dL (6.4-8.2)
[2022-03-06 00:50] LABS: CA-125 6022 U/mL (<35)
== END 2022-03-03 07:08 | disposition home or self-care (01) ==
LOC: CHSLAB 07:10
PROVIDERS: PCP Family Medicine
DX: C57.01 Malignant neoplasm of right fallopian tube (principal); Z51.11 Encounter for antineoplastic chemotherapy
CPT/HCPCS: 36415; 80053; 82570; 83735; 84156; 85025; 86304

== ENCOUNTER 2022-03-24 07:26 | Outpatient (CLI) | payer MEDICARE, SELFPAY ==
[2022-03-24 07:47] LABS: Basophils Absolute Auto 0.04 K/mm3 (0.00-0.10); Basophils Percent Auto 0.5 % (0.0-1.0); Eosinophils Absolute Auto 0.09 K/mm3 (0.02-0.50); Eosinophils Percent Auto 1.1 % (1.0-6.0); Hemoglobin 9.1 g/dL (11.7-13.8); Immature Granulocyte Absolute 0.05 K/mm3 (0.00-0.00); Immature Granulocyte Percent A 0.6 % (0.0-0.0); Lymphocytes Absolute Auto 1.15 K/mm3 (1.10-4.50); Lymphocytes Percent Auto 13.9 % (18.0-42.0); Mean Corpuscular HGB Conc 31.4 g/dL (32.0-36.0); Mean Corpuscular Hemoglobin 29.9 pg (27.0-31.0); Mean Corpuscular Volume 95.4 fL (78.0-102.0); Mean Platelet Volume 10.3 fl (9.2-11.8); Monocytes Percent Auto 6.1 % (2.0-11.0); Neutrophils Absolute Auto 6.4 K/mm3 (1.7-7.2); Neutrophils Percent Auto 77.8 % (50.0-70.0); Platelet Count Result 170 K/mm3 (150-420); Red Blood Count 3.04 M/mm3 (4.20-5.40); Red Cell Distribution Width 22.4 % (11.6-14.4); White Blood Count 8.3 K/mm3 (4.8-10.8)
[2022-03-24 08:12] LABS: Creatinine Urine 131.97 mg/dL (40-278); Total Protein Urine Random 49.8 mg/dL (0.0-11.9); Ur Ttl Prot Creatinine Ratio 0.38 mg/mg (0-0.20)
[2022-03-24 08:29] LABS: Alanine Aminotransferase 20 U/L (14-59); Albumin Level 2.6 g/dL (3.4-5.0); Alkaline Phosphatase 215 U/L (46-116); Anion Gap 11 mmol/L (8-16); Aspartate Amino Transferase 23 U/L (15-37); Bilirubin,Total 0.5 mg/dL (0.00-1.00); Blood Urea Nitrogen 27 mg/dL (7-18); Calcium 9.7 mg/dL (8.5-10.1); Carbon Dioxide 28 mmol/L (21-32); Chloride 103 mmol/L (98-108); Estimated Glomerular Filt Rate 45; Glucose 125 mg/dL (70-99); Magnesium 1.4 mg/dL (1.8-2.4); Osmolality Calculated 300 mOsm/kg (285-295); Potassium 3.9 mmol/L (3.5-5.1); Sodium 142 mmol/L (136-145); Total Protein 6.8 g/dL (6.4-8.2)
[2022-03-28 00:39] LABS: CA-125 8578 U/mL (<35)
== END 2022-03-24 07:27 | disposition home or self-care (01) ==
LOC: CHSLAB 07:31
PROVIDERS: PCP Family Medicine
DX: C57.01 Malignant neoplasm of right fallopian tube (principal)
CPT/HCPCS: 36415; 80053; 82570; 83735; 84156; 85025; 86304

== ENCOUNTER 2022-04-18 08:56 | Observation (INO) | payer MEDICARE, SELFPAY ==
[2022-04-18 08:56] VITALS: BP 124/78; PULSE 110; RESP 24; TEMP 36.9; O2SAT 97
[2022-04-18 09:00] VITALS: BP 124/78; PULSE 110; RESP 24; TEMP 36.9; O2SAT 97
[2022-04-18] MEDS: SODIUM CHLORIDE 0.9% IV 1,000 ML 999 ML IV CONT (09:23)
[2022-04-18 09:25] LABS: Basophils Absolute Auto 0.03 K/mm3 (0.00-0.10); Basophils Percent Auto 0.2 % (0.0-1.0); Hematocrit 32.8 % (35.0-42.0); Hemoglobin 10.4 g/dL (11.7-13.8); Immature Granulocyte Absolute 0.16 K/mm3 (0.00-0.00); Immature Granulocyte Percent A 1.1 % (0.0-0.0); Lymphocytes Percent Auto 2.8 % (18.0-42.0); Mean Corpuscular HGB Conc 31.7 g/dL (32.0-36.0); Mean Corpuscular Hemoglobin 30.9 pg (27.0-31.0); Mean Corpuscular Volume 97.3 fL (78.0-102.0); Mean Platelet Volume 10.4 fl (9.2-11.8); Monocytes Absolute Auto 0.23 K/mm3 (0.10-0.90); Monocytes Percent Auto 1.6 % (2.0-11.0); Neutrophils Absolute Auto 13.4 K/mm3 (1.7-7.2); Neutrophils Percent Auto 94.3 % (50.0-70.0); Platelet Count Result 146 K/mm3 (150-420); Red Blood Count 3.37 M/mm3 (4.20-5.40); Red Cell Distribution Width 19.9 % (11.6-14.4); White Blood Count 14.2 K/mm3 (4.8-10.8)
[2022-04-18] MEDS: ONDANSETRON INJ 4 MG/2 ML VIAL IV PUSH (09:25)
--- NOTE | 2022-04-18 09:31 | ED.GENADULT ---
HPI - General Adult General Chief complaint: Weakness Stated complaint: Ambulance Time Seen by Provider: 04/18/22 09:15 History of Present Illness HPI narrative: Carmella is a 71F with a PMH of HTN, gout, pancreatitis, and end stage fallopian tube cancer that presented to the ED vis EMS with one weak of weakness. She has been getting progressively more weak and has had nausea with poor PO intake. As it was not getting better she called EMS. We had a discussion about goals of care. She does not want CPR, intubation, pressors or even antibiotics. When asked if she just wanted to be kept comfortable she said yes. She was ok with having her port accessed for meds, labs and fluids. She denied CP, abdominal pain, diarrhea and aches but did admit dyspnea. Related Data Home Medications Medication Instructions Recorded Confirmed allopurinol 300 mg tablet 150 mg PO QAM 03/25/21 04/18/22 atenolol 50 mg tablet 50 mg PO QAM 03/25/21 04/18/22 acetaminophen 500 mg tablet 100 mg PO Q6H 04/18/22 04/18/22 docusate sodium 100 mg capsule 100 mg PO BID 04/18/22 04/18/22 lidocaine-prilocaine 2.5 %-2.5 % 1 g topical ONCE 04/18/22 04/18/22 topical cream loratadine 10 mg tablet 10 mg PO DAILY 04/18/22 04/18/22 lorazepam 0.5 mg tablet 0.5 mg PO Q6H PRN Nausea 04/18/22 04/18/22 nystatin 100,000 unit/gram topical See Rx Instructions .Route .COMPLEX 04/18/22 04/18/22 powder olaparib 150 mg tablet 150 mg PO BID 04/18/22 04/18/22 ondansetron HCl 8 mg tablet 8 mg PO Q8H PRN Nausea 04/18/22 04/18/22 oxycodone 5 mg tablet 5 mg PO Q4H PRN Pain 04/18/22 04/18/22 polyethylene glycol 3350 17 gram 17 g PO BID 04/18/22 04/18/22 oral powder packet (Miralax) prochlorperazine maleate 10 mg 10 mg PO Q6H PRN Nausea 04/18/22 04/18/22 tablet pyridoxine (vitamin B6) 100 mg 100 mg PO DAILY 04/18/22 04/18/22 tablet sennosides 8.6 mg tablet (senna) 8.6 mg PO BID 04/18/22 04/18/22 simethicone 125 mg chewable tablet 125 mg PO QID PRN Acid Reflux 04/18/22 04/18/22 Allergies Allergy/AdvReac Type Severity Reaction Status Date / Time cephalexin Allergy Rash Verified 04/18/22 09:43 morphine Allergy vomiting Verified 04/18/22 09:43 Sulfa (Sulfonamide Allergy Unknown Verified 04/18/22 09:43 Antibiotics) Review of Systems Review of Systems: All systems reviewed & are unremarkable except as noted in HPI and below PMFSH Past Medical History Medical History Breast cancer Gout Hypertension Pancreatitis Surgical History Surgical History History of cholecystectomy Hx of mastectomy Family History Family History Mother Hypertension Mother Uterine cancer Social History Social History Smoking status: Never smoker Second hand tobacco smoke exposure: Yes Alcohol intake: never Substance use: never Lack of Transportation: No Lack of Food: Never True Current Housing: I Have Housing Concerned About Future Housing: No Difficulty Paying Gas/Electric Bills: No Difficulty Paying for Meds: No Currently Unemployed: No Education: Master's Degree or Higher Difficulty w/ Childcare or Family Care: No Spiritual care concerns: No Exam Const: General: confusion and ill appearing chronically Other: cachectic appearing HENMT: Mouth: Yes Normal oral and palatal mucosa present Other: temporal wasting, atraumatic Eyes: Conjunctivae: conjunctivae normal Pupils: Equal, round and reactive pupils present Neck: Neck: normal visual inspection Chest: Chest palpation & inspection: normal inspection of the chest Resp: Effort & Inspection: normal respiratory effort Auscultation: clear to auscultation bilaterally Cardio: Rate: tachycardic Heart sounds: no murmurs GI: Inspection: non-distended GI Palp: Yes Soft to p
[2022-04-18 09:39] LABS: Lactic Acid Reflex 2.1 mmol/L (0.4-2.0)
[2022-04-18 09:48] LABS: Alanine Aminotransferase 21 U/L (14-59); Alkaline Phosphatase 245 U/L (46-116); Anion Gap 9 mmol/L (8-16); Aspartate Amino Transferase 25 U/L (15-37); Bilirubin,Total 0.6 mg/dL (0.00-1.00); Blood Urea Nitrogen 56 mg/dL (7-18); Calcium 11.3 mg/dL (8.5-10.1); Carbon Dioxide 30 mmol/L (21-32); Chloride 95 mmol/L (98-108); Estimated Glomerular Filt Rate 34; Glucose 158 mg/dL (70-99); Magnesium 1.7 mg/dL (1.8-2.4); NT Pro B Type Natriuretic Pept 2254 pg/mL (0-125); Osmolality Calculated 296 mOsm/kg (285-295); Sodium 134 mmol/L (136-145); Thyroid Stimulating Hormone 3.43 uIU/mL (0.36-3.74); Troponin I 47.4 ng/L (0.00-60.4)
[2022-04-18 09:51] LABS: CRP > 10.6 mg/dL (0.0-0.9)
[2022-04-18 09:52] LABS: Ethanol < 3 mg/dL (0-6)
[2022-04-18 10:05] VITALS: BP 119/70; PULSE 94; RESP 20; O2SAT 97
[2022-04-18 10:09] LABS: Influenza A QL RT-PCR Negative (Negative); Influenza B QL RT-PCR Negative (Negative); SARS-CoV-2 RNA PCR Negative (Negative)
[2022-04-18 11:00] VITALS: BP 121/66; PULSE 96; RESP 22; TEMP 36.8; O2SAT 94
--- NOTE | 2022-04-18 11:00 | PC.NURSE ---
Patient arrived to unit via stretcher from ER, accompanied by ER staff. Required 3 assist slide transfer from stretcher to bed. Patient oriented to hospital policy, use of bed control and use of call light. Son at bedside. Patient is comfort measures only.
[2022-04-18] MEDS: LORazepam INJ (*CRX) 2 MG/ML VIAL IV PUSH (11:37)
[2022-04-18] MEDS: KETOROLAC 30 MG/ML VIAL (*BKC) IV PUSH ×2 (11:41→23:23)
[2022-04-18 11:47] VITALS: BMI 21.4
--- NOTE | 2022-04-18 12:12 | PC.NURSE ---
Anti anxiety and pain medication administered to patient and patient is feeling much better.
[2022-04-18 12:22] LABS: Reflex Lactic Acid Yes or No Add Lactic
[2022-04-18 14:09] LABS: Lactic Acid 1.3 mmol/L (0.4-2.0)
[2022-04-18 16:00] VITALS: BP 122/56; PULSE 87; RESP 16; TEMP 36.4; O2SAT 95
--- NOTE | 2022-04-18 18:55 | PC.NURSE ---
Ativan and Toradol effective for pain and end of life anxiety.
[2022-04-19] VITALS: BP 114/59; PULSE 90; RESP 18; TEMP 35.7; O2SAT 93
[2022-04-19] MEDS: ONDANSETRON INJ 4 MG/2 ML VIAL IV PUSH (02:11)
[2022-04-19] MEDS: KETOROLAC 30 MG/ML VIAL (*BKC) IV PUSH (05:12)
--- NOTE | 2022-04-19 05:27 | PC.NURSE ---
Patient is frequently having generalized pain, meds given per port for this, is nauseous frequently and weak, poor intake, edema to rt ankle noted, discoloration to hands, turn and positioned frequently.
[2022-04-19] MEDS: LORazepam INJ (*CRX) 2 MG/ML VIAL IV PUSH ×4 (05:55→22:50)
[2022-04-19 08:00] VITALS: BP 126/72; PULSE 92; RESP 24; TEMP 36.2; O2SAT 94
[2022-04-19] MEDS: HYDROmorphone HCL INJ (*CRX) 2 MG/ML VIAL 1 MG IV PUSH ×4 (08:18→22:49)
--- NOTE | 2022-04-19 10:42 | PM.IMHP ---
H&P: HPI History of Present Illness Date/Time: 04/19/22 10:42 Chief Complaint: Nausea and vomiting, Pain , Weakness Narrative: Carmella is a 71F with a PMH of HTN, gout, pancreatitis, and end stage fallopian tube cancer that presented to the ED vis EMS with one week of weakness. Per noted patient has been progressively more weak and has had nausea with poor PO intake. Patient is not taking any home medication and is wanting hospice with the ativan and morphine for pain and Zofran for nausea. Son is her POA and pt is resting well and I am not able to arounse her. Patient has had 2 episodes of vomiting throughout the night and she has slept the rest of the time not awake long and unable to fully answer question. She will go to skilled nursing with hospice in the morning. We will continue this plan of care at this time. Review of Systems Review of Systems: Abdominal pain and nausea and vomiting All systems reviewed & are unremarkable except as noted in HPI and below PMFSH Past Medical History Medical History Breast cancer Gout Hypertension Pancreatitis Surgical History Surgical History History of cholecystectomy Hx of mastectomy Family History Family History Mother Hypertension Mother Uterine cancer Social History Social History Smoking status: Never smoker Second hand tobacco smoke exposure: Yes Alcohol intake: never Substance use: never Lack of Transportation: No Lack of Food: Never True Current Housing: I Have Housing Concerned About Future Housing: No Difficulty Paying Gas/Electric Bills: No Difficulty Paying for Meds: No Currently Unemployed: No Education: Master's Degree or Higher Difficulty w/ Childcare or Family Care: No Spiritual care concerns: No Meds Home Medications and Allergies Home Medications Medication Instructions Recorded Confirmed Type allopurinol 300 mg tablet 150 mg PO QAM 03/25/21 04/18/22 History atenolol 50 mg tablet 50 mg PO QAM 03/25/21 04/18/22 History acetaminophen 500 mg tablet 100 mg PO Q6H 04/18/22 04/18/22 History docusate sodium 100 mg capsule 100 mg PO BID 04/18/22 04/18/22 History lidocaine-prilocaine 2.5 %-2.5 % 1 g topical ONCE 04/18/22 04/18/22 History topical cream loratadine 10 mg tablet 10 mg PO DAILY 04/18/22 04/18/22 History lorazepam 0.5 mg tablet 0.5 mg PO Q6H PRN Nausea 04/18/22 04/18/22 History nystatin 100,000 unit/gram topical See Rx Instructions .Route .COMPLEX 04/18/22 04/18/22 History powder olaparib 150 mg tablet 150 mg PO BID 04/18/22 04/18/22 History ondansetron HCl 8 mg tablet 8 mg PO Q8H PRN Nausea 04/18/22 04/18/22 History oxycodone 5 mg tablet 5 mg PO Q4H PRN Pain 04/18/22 04/18/22 History polyethylene glycol 3350 17 gram 17 g PO BID 04/18/22 04/18/22 History oral powder packet (Miralax) prochlorperazine maleate 10 mg 10 mg PO Q6H PRN Nausea 04/18/22 04/18/22 History tablet pyridoxine (vitamin B6) 100 mg 100 mg PO DAILY 04/18/22 04/18/22 History tablet sennosides 8.6 mg tablet (senna) 8.6 mg PO BID 04/18/22 04/18/22 History simethicone 125 mg chewable tablet 125 mg PO QID PRN Acid Reflux 04/18/22 04/18/22 History Allergies Allergy/AdvReac Type Severity Reaction Status Date / Time cephalexin Allergy Rash Verified 04/18/22 09:43 morphine Allergy vomiting Verified 04/18/22 09:43 Sulfa (Sulfonamide Allergy Unknown Verified 04/18/22 09:43 Antibiotics) Vital Signs Vital Signs - 24 hr 04/18/22 11:00 04/18/22 16:00 04/19/22 00:00 Temperature 98.2 F 97.5 F L 96.3 F L Pulse Rate 96 87 90 Respiratory Rate 22 H 16 18 Blood Pressure 121/66 122/56 L 114/59 L Pulse Oximetry 94 95 93 Oxygen Delivery Room Air Room Air Room Air 04/19/22 08:00 Temperature 97.2 F L Pulse Ra
[2022-04-19 16:00] VITALS: BP 103/54; PULSE 103; RESP 24; TEMP 36.3; O2SAT 89
--- NOTE | 2022-04-19 16:01 | PC.NURSE ---
Patient nonresponsive. Turned and positioned and changed. No urination this shift. Appears to be restless PRN ativan given.
[2022-04-20] VITALS: BP 69/28; PULSE 116; RESP 36; TEMP 36.9
--- NOTE | 2022-04-20 01:55 | PC.NURSE ---
Addendum entered by Magdalena Sawant RN 04/20/22 03:01: Body was released to [facility] at 0250 on 04/20/2022. Original Note: Carmella Harris passed at 0150 on 04/20/2022. Patient had end stage fallopian tube cancer, and was a DNR. Patient's son was notified, as well as the [employer] and [facility]. The [employer] and [facility] both indicated that we could release the body. Patient's son asked for us to notify [facility] in [place]. They were called at [phone]. Patient was admitted to [facility] for pain control, and was given Dilaudid, 1 mg IV push Q4; Toradol, 30 mg IV push Q6, and Ativan, 0.5 mg IV push Q4 as needed. Patient appeared to be comfortable with this pain regimen until her passing.
--- NOTE | 2022-04-20 07:27 | PM.EVENT ---
Event Note Event Note Event Note: I was informed that patient @ 0150 she was without pulse, heartbeat and or respiration. Patient Dx was end stage cancer, Cardiopulmonary arrest Patient body has been picked up by home [facility] [place]. Family has been notified
== END 2022-04-20 03:00 | disposition expired ==
LOC: CHSED 10:30 → CHS2ND 10:47
PROVIDERS: Admitting Provider Internal Medicine; Emergency Provider Family Medicine; PCP Family Medicine; Visit Provider Nurse Practitioner Family
DX: C57.00 Malignant neoplasm of unspecified fallopian tube (principal); R53.1 Weakness; I46.9 Cardiac arrest, cause unspecified; I10 Essential (primary) hypertension; M10.9 Gout, unspecified; Z51.5 Encounter for palliative care; Z85.3 Personal history of malignant neoplasm of breast; Z90.10 Acquired absence of unspecified breast and nipple; Z90.49 Acquired absence of other specified parts of digestive tract; Z20.822 Contact with and (suspected) exposure to COVID-19; Z79.899 Other long term (current) drug therapy
CPT/HCPCS: 36415; 80053; 80307; 83605; 83735; 83880; 84443; 84484; 85025; 86140; 87502; 96361; 96374; 96375; 96376; 99285; G0378; J1170; J1885; J2060; J2405; J7030; U0003; U0005